=== PATIENT | female | born 1950 | race Caucasian/White ===

== ENCOUNTER 2017-12-21 08:08 | Day surgery (SDC) | payer MEDICARE, BC ==
[2017-12-21] VITALS (9 sets, daily range): BP systolic 83–132; BP diastolic 51–68; PULSE 66–89; TEMP 98.3
[~2017-12-21] VITALS: Ht 157.5 cm; Wt 61.0 kg
[2017-12-21] MEDS ORDERED: ASPIRIN E.C. 8181 MG PO (08:50)
[2017-12-21] MEDS ORDERED: PROTONIX 40MG T40 MG PO (08:51)
[2017-12-21] MEDS ORDERED: CALCIUM 600/VIT1 CAP PO (08:51)
[2017-12-21] MEDS ORDERED: EVISTA 60MG60 MG/TAB PO (08:52)
[2017-12-21] MEDS ORDERED: MERIBIN5 MG PO (08:53)
[2017-12-21] MEDS ORDERED: PREMARIN VAG42.5 GM VG (08:53)
[2017-12-21] MEDS ORDERED: CRESTOR 10MG10 MG PO (08:54)
[2017-12-21] MEDS ORDERED: NITROSTAT0.4 MG/TAB (08:55)
[2017-12-21] MEDS ORDERED: PROAIR HFA0.09 MG/AC IH (08:55)
[2017-12-21 09:03] LABS: HEMATOCRIT 38.1 % (37.0-47.0); HEMOGLOBIN 12.8 g/dl (12.5-16.0); MEAN CELL VOLUME 88 fl (80.0-100.0); MEAN CORPUSCULAR HEMOGLOBIN 30 pg (27.0-31.0); MEAN CORPUSCULAR HGB CONC 34 g/dl (33.0-37.0); PLATELET COUNT 256 K/mm3 (130-400); RED BLOOD COUNT 4.32 M/mm3 (4.10-5.30)
[2017-12-21 09:08] LABS: INR 1.1 (0.8-3.0)
[2017-12-21 09:16] LABS: CALCIUM 8.9 mg/dL (8.4-10.2); CREATININE, serum 0.82 mg/dL (0.52-1.25); POTASSIUM 3.6 mmol/L (3.4-5.0)
== END 2017-12-21 13:45 | disposition home or self-care (01) ==
LOC: COL.CAR 08:08
PROVIDERS: Internal Medicine Interventional Cardiology
DX: I20.9 Angina pectoris, unspecified (principal); R94.39 Abnormal result of other cardiovascular function study; Z83.3 Family history of diabetes mellitus; Z79.82 Long term (current) use of aspirin
CPT/HCPCS: C1725; C1769; J1644; J2250; J3010; Q9967

== ENCOUNTER → 2018-04-10 | Outpatient (CLI) | payer MEDICARE, BC ==
[~2018-04-10] MED LIST: ASPIRIN E.C. 8181 MG PO; CALCIUM 600/VIT1 CAP PO; CRESTOR 10MG10 MG PO; EVISTA 60MG60 MG/TAB PO; MERIBIN5 MG PO; NITROSTAT0.4 MG/TAB; PREMARIN VAG42.5 GM VG; PROAIR HFA0.09 MG/AC IH; PROTONIX 40MG T40 MG PO
== END ==
LOC: COL.PUL 12:35
DX: R06.02 Shortness of breath (principal)
CPT/HCPCS: J7674